=== PATIENT | male | born 2000 | race Caucasian/White ===

== ENCOUNTER 2021-05-08 14:24 | Inpatient (IN) | payer SELFPAY ==
[2021-05-08 14:36] VITALS: BP 147/80; PULSE 79; RESP 18; O2SAT 99; BMI 27.3
[2021-05-08 15:15] LABS: Basophils # 0.1 10^3/uL (0.0-0.1); Basophils % 0.6 %; Eosinophils # 0.3 10^3/uL (0.0-0.8); Hematocrit 43.7 % (42.0-52.0); Hemoglobin 14.7 g/dL (11.7-16.6); Lymphocytes # 2.3 10^3/uL (0.8-4.8); Lymphocytes % 26.7 %; Mean Corpuscular HGB Conc 33.6 g/dL (30.0-36.0); Mean Corpuscular Volume 89.2 fL (80-94); Mean Platelet Volume 10.8 fL (7.4-10.4); Monocytes # 0.6 10^3/uL (0.2-0.9); Monocytes % 6.9 %; Neutrophils # 5.31 10^3/uL (1.8-7.7); Neutrophils % 62.7 %; Nucleated Red Blood Cells % 0 %; Platelet Count 268 10^3/cmm (130-400); Red Cell Distribution Width 12.5 % (12.1-15.1); White Blood Count 8.5 10^3/uL (4.0-10.0)
[2021-05-08 15:33] LABS: Amphetamines Screen Urine Positive (Negative); Barbiturates Screen Urine Negative (Negative); Benzodiazepines Screen Urine Positive (Negative); Cocaine Screen Urine Negative (Negative); Opiate Screen Urine Negative (Negative); PCP Screen Urine Negative (Negative); THC Screen Urine Positive (Negative)
[2021-05-08 15:38] LABS: Alanine Aminotransferase 19 U/L (0-41); Albumin Level 4.6 g/dL (3.5-5.2); Alkaline Phosphatase 58 IU/L (40-130); Aspartate Amino Transferase 20 U/L (0-40); Blood Urea Nitrogen 11 mg/dL (6-20); Carbon Dioxide 26 mmol/L (22-29); Chloride 104 mmol/L (98-107); Globulin 2.7 g/dL (1.3-4.6); Glomerular Filtration Rate 142.4 mL/min (90-130); Glucose 95 mg/dL (65-115); Osmolality Calculated 287 mOsm/kg (285-295); Sodium 139 mmol/L (136-145); Total Bilirubin 0.4 mg/dL (0.15-1.2); Total Protein 7.3 g/dL (6.6-8.7)
[2021-05-08 15:39] LABS: Acetaminophen < 5.0 ug/mL (10-30); Alcohol Level < 10 mg/dL (0-10); Salicylate < 0.3 mg/dL (3-10)
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
[2021-05-08 16:25] VITALS: BP 161/82; PULSE 72; RESP 16; TEMP 37.2; O2SAT 97
[2021-05-08] MEDS: trazodone 50 mg Tablet PO (21:12)
[2021-05-08 21:13] VITALS: BP 132/67; PULSE 75; RESP 14; TEMP 37.2; O2SAT 98
[2021-05-08] MEDS: hyDROXYzine 25 mg Capsule 50 MG PO (21:13)
[2021-05-09 06:00] VITALS: BP 126/69; PULSE 81; RESP 16; TEMP 36.8; O2SAT 98
[2021-05-09] MEDS: nicotine 21 mg Patch 1 PATCH TRANSDERMA (12:59)
[2021-05-09 14:00] VITALS: BP 115/71; PULSE 71; RESP 18; TEMP 37.1; O2SAT 97
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
--- NOTE | 2021-05-09 15:34 | PC.RESP ---
Smoking Cessation information sent to patient.
[2021-05-09 21:01] VITALS: BP 160/82; PULSE 93; RESP 15; TEMP 37.1; O2SAT 97
[2021-05-09] MEDS: nicotine 2 mg Gum BUCCAL (21:18)
[2021-05-09] MEDS: hyDROXYzine 25 mg Capsule 50 MG PO (21:37)
[2021-05-09] MEDS: trazodone 50 mg Tablet PO (21:38)
--- NOTE | 2021-05-09 22:21 | PC.NURSE ---
The patient came to the nurse's station saying he couldn't sleep. He asked for, the meds I had last night. He was given Vistaril 50 mg po, Trazodone 50 mg po, at 2136.
--- NOTE | 2021-05-09 23:32 | PC.NURSE ---
In bed, quiet, appears sleeping.
[2021-05-10 06:00] VITALS: BP 111/68; PULSE 78; RESP 16; TEMP 36.6; O2SAT 98
[2021-05-10] MEDS: doxycycline 100 mg Tablet PO ×2 (09:13→16:37)
[2021-05-10 14:00] VITALS: BP 162/81; PULSE 79; RESP 15; TEMP 37.1; O2SAT 97
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
[2021-05-10 16:38] VITALS: BP 162/81; PULSE 79; RESP 15; TEMP 37.1; O2SAT 97
--- NOTE | 2021-05-10 20:11 | PC.RESP ---
Smoking Cessation information sent to patient.
== END 2021-05-10 16:45 | disposition home or self-care (01) | DRG 881 ==
LOC: ER 15:10 → NP 16:04
PROVIDERS: Admitting Provider Psychiatry & Neurology Psychiatry; Emergency Provider Emergency Medicine; Visit Provider Psychiatry & Neurology Psychiatry
DX: F32.9 Major depressive disorder, single episode, unspecified (principal); R45.851 Suicidal ideations; F12.10 Cannabis abuse, uncomplicated; F17.210 Nicotine dependence, cigarettes, uncomplicated; S40.862A Insect bite (nonvenomous) of left upper arm, initial encounter; S40.861A Insect bite (nonvenomous) of right upper arm, initial encounter; S80.862A Insect bite (nonvenomous), left lower leg, initial encounter; S80.861A Insect bite (nonvenomous), right lower leg, initial encounter; W57.XXXA Bitten or stung by nonvenomous insect and other nonvenomous arthropods, initial encounter; Z81.8 Family history of other mental and behavioral disorders; Z86.59 Personal history of other mental and behavioral disorders; Z62.810 Personal history of physical and sexual abuse in childhood
CPT/HCPCS: 80053; 80306; 80307; 85025; 99285